=== PATIENT | female | born 1975 | race Caucasian/White ===

== ENCOUNTER 2016-11-04 19:30 | Inpatient (IN) | payer OTHER ==
[~2016-11-04] VITALS: Ht 170.2 cm; Wt 113.9 kg
--- NOTE | ~2016-11-04 | EKG ---
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
--- NOTE | ~2016-11-04 | 2DMMODE ---
[address] [place] [address] 2 D/M-MODE ECHOCARDIOGRAM Name: PEYTONTAN S Room #: 245-P ADM IN .R.#: [id number] Admission: 11/05/16 Attend Phys: Jesus Alberto Barkley Discharge: Date of : 77 Date of Service: 11/08/16 0823 Report #: [id number] THIS REPORT FOR: //name// APPROVED REPORT Study performed: 11/07/2016 11:29:51 EXAM: Comprehensive 2D, Doppler, and color-flow Echocardiogram Patient Location: Bedside Room #: 245 Status: on-call Other Information Study Quality: Technically Limited/limited views and measurements available Technically limited study due to post op bandages, limited windows, no patient mobility. Indications S/P CABG 11/06/16: Hypotension, arrhythmia. Rule out pericardial effusion, LV function. 2D Dimensions LVEF(%): 56.06 (>50%) IVSd: 12.38 (7-11mm) LVDd: 38.85 mm PWd: 12.25 (7-11mm) LVDs: 27.67 (25-40mm) Aortic Root: 30.61 mm Huang's LVEF: 56.06 % Tricuspid Valve TR Peak Rusty.: 2.79 m/s TR Peak Gr.: 31.16 mmHg Left Ventricle The left ventricle is normal size. Regional wall motion is not well visualized but grossly normal. Mild concentric left ventricular hypertrophy. Left ventricular systolic function is normal. LVEF is 60-65%. Right Ventricle Right ventricle is grossly normal in size. Right ventricular systolic function is grossly normal. [facility] [address] [address] 2 D/M-MODE ECHOCARDIOGRAM Name: PEYTONTAN Gloria Room #: 245-P [facility] IN [facility].#: [id number] Admission: 11/05/16 Attend Phys: Jesus Alberto Barkley Discharge: Date of : 77 Date of Service: 11/08/16 0823 Report #: [id number] [place] The left atrium size is normal. The right atrium size is normal. Aortic Valve The aortic valve is grossly normal in structure. No aortic regurgitation is present. Mitral Valve The mitral valve is normal in structure. There is no mitral valve regurgitation noted. Tricuspid Valve The tricuspid valve is normal in structure. There is trace tricuspid regurgitation. There is mild pulmonary hypertension with an estimated PAP of 31mmHg plus the right atrial pressure. Great Vessels The aortic root is normal in size. No subcostal view due to post op bandages. Pericardium There is no pericardial effusion. <Conclusion> Limited and abbreviated study Normal global systolic function. Regional wall motion is not well visualized but grossly normal. LVEF 60-65%. The aortic valve is grossly normal in structure. The mitral valve is normal in structure. No mitral valve regurgitation noted. Pulmonary artery pressure of 30mmHg There is no pericardial effusion. <ELECTRONICALLY SIGNED> By: Guilherme Morel MD, FACC 11/08/16822 2 2 Guilherme Morel MD, FAC /INF
--- NOTE | ~2016-11-04 | CATHLAB ---
[facility] [address] [place] [address] INVASIVE PROCEDURE REPORT Name: TAN TODD Room #: 245-P [facility] IN ..#: [id number] Admission: 11/05/16 Attend Phys: Jesus Alberto Barkley Discharge: Date of : 77 Date of Service: 11/05/16 1212 Report #: [id number] THIS REPORT FOR: //name// APPROVED REPORT Patient Details Patient Status: In-Patient Room #: The patient is a 40 year-old female Event Personnel Cipriano Anderson Search Manager, China Lyons RN Monitor, Keenan Yanez Monitor, Katerina Miller RN RN, Maryjane Colindres RN RN, Avril Hernandez Scrsuzan Procedures Performed Art Access - R femoral artery* Left Heart Cath w/or w/o Coronaries [id number] [address] Initial Mod Sed Same Phys/QHP 5y [id number] Indication Non-STEMI , Unstable angina Risk Factors Arterial Hypertension, Family History, Hypercholesterolemia, Diabetes Admission/Lab Medications/Medications given during procedure Glycoprotein IllbIlla Inhibitors, Heparin Unfract. Procedure Narrative The Right Groin^ was infiltrated with 1% Lidocaine subcutaneous anesthesia. A 4FR MULTIPACK JR 4/JL 4/PIG #[id number] sheath was inserted into the RFA^. Coronary angiography was performed using coronary diagnostic catheters. The right coronary system was accessed and visualized with a 4 Fr JR4 catheter. The left coronary system was accessed and visualized with a 4 Fr JL4 catheter. The left ventricle was accessed and visualized with a Angled Pigtail catheter. Left ventricular/Aortic Valve gradient assessed via catheter pullback. Left ventriculogram was performed in 30 degree projection. The patient tolerated the procedure well and there were no complications associated with the procedure. There was no hematoma. Intraoperative Conscious Sedation Sedation start time: 830 Case end Time: 856 [facility] [place] [place] [address] INVASIVE PROCEDURE REPORT Name: TAN TODD Room #: 245-P [facility] IN ..#: [id number] Admission: 11/05/16 Attend Phys: Jesus Alberto Barkley Discharge: Date of : 77 Date of Service: 11/05/16 1212 Report #: [id number] Fentanyl 50.0 mcg Versed 2.0 mg Fluoro Time: 2.70 minutes Dose: DAP 5800.99 cGycm2 779 mGy Contrast Type and Amount: Visipaque 125 ml Coronary Angiography The patient's coronary anatomy is right dominant. [place] Artery Percent Stenosis Left Main: 80 % Prox LAD: % Mid/Distal LAD: % Circumflex: % RCA: % Ramus: % Hemodynamics The aortic pressure is 138/94 mmHg with a mean of 113 mmHg. The left ventricular pressure is 144/11 mmHg with a mean of mmHg. The left ventricular end diastolic pressure is 21 mmHg. Conclusion Severe distal LM occlusion. Recommend CV consultation. Recommendations CABG <ELECTRONICALLY SIGNED> By: Cipriano Anderson MD 11/05/161211 11 11 Cipriano Anderson MD /INF
--- NOTE | ~2016-11-04 | EKG ---
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 : 1975 Requested By: Fely Villafuerte Order Number: [id number] MD: Guilherme Morel Measurements Intervals [place] Rate: 87 P: 33 MA: 146 QRS: 38 QRSD: 130 T: 7 QT: 421 QTc: 507 Interpretive Statements Sinus rhythm Right bundle branch block Compared to ECG 04/17/2012 14:46:41 No significant change was found Electronically Signed On 11-06-2016 8:37:59 CDT by Guilherme Morel [email or web address] <ELECTRONICALLY SIGNED> By: Guilherme Morel MD, [facility] 11/06/16 0837 0450 9 Guilherme Morel MD, FACC /EPI
--- NOTE | ~2016-11-04 | EKG ---
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 : 1975 Requested By: Bryce Boswell Order Number: [id number] MD: Guilherme Morel Measurements Intervals [place] Rate: 54 P: 13 ND: 130 QRS: 33 QRSD: 134 T: 10 QT: 476 QTc: 452 Interpretive Statements Sinus bradycardia Right bundle branch block Compared to ECG 04/17/2012 14:46:41 Right bundle-branch block now present Electronically Signed On 11-06-2016 8:04:10 CDT by Guilherme Morel [email or web address] <ELECTRONICALLY SIGNED> By: Guilherme Morel MD, [facility] 11/06/16 0804 38 38 Guilherme Morel MD, [facility] /EPI
[2016-11-04 19:30] VITALS: BP 155/100
[~2016-11-04 19:30] MED LIST: CELEXA40 MG; CIPROFLOXACIN500 M1 PO; IBUPROFEN 600600 M1 PO; NORCO 5-325 TA1 EACH PO; PROPRANOLOL 1010 M1; WELLBUTRIN 75 M75 M1
[2016-11-04] MEDS ORDERED: LISINOPRIL10 MG (19:53)
[2016-11-04] MEDS ORDERED: LEVEMIR SUBQ (19:53)
[2016-11-04 20:12] LABS: BASOPHILS 0.5 % (0.0-2.0); EOSINOPHILS 0.1 % (0.0-3.0); HEMATOCRIT 40.9 % (37.0-47.0); HEMOGLOBIN 13.9 gm/dL (12.0-15.0); LYMPHOCYTES 14.8 % (24.0-44.0); MCH 28.4 pg (26.0-34.0); MCV 83.5 fL (80.0-100.0); MONOCYTES 3.3 % (1.0-8.0); PLATELET COUNT 295 thou/uL (150-400); POLYS 81.3 % (36.0-66.0); RDW 12.8 % (10.5-14.5)
[2016-11-04 20:13] LABS: MANUAL DIFF NO
[2016-11-04 20:19] LABS: ANION GAP 14 mmol/L (7-16); BUN 17 mg/dL (7-18); CALCIUM 9.9 mg/dL (8.5-10.1); CHLORIDE 99 mmol/L (98-107); CO2 21 mmol/L (21-32); GLUCOSE 342 mg/dL (74-106); POTASSIUM 4.2 mmol/L (3.5-5.1); SODIUM 134 mmol/L (136-145)
[2016-11-04 20:31] LABS: NT-PRO BRAIN NAT PEPTIDE 17 pg/mL (<300); TROPONIN-I < 0.04 ng/mL (<0.04-0.07)
[2016-11-05] VITALS (8 sets, daily range): BP systolic 122–160; BP diastolic 87–108
[2016-11-05 00:28] LABS: APTT 22.7 Seconds (24.5-32.8); PROTIME 10.2 Seconds (9.3-11.4)
[2016-11-05 04:11] LABS: HEMOGLOBIN 13.1 gm/dL (12.0-15.0); MCH 28.5 pg (26.0-34.0); MCHC 34.6 g/dL (28.0-37.0); MCV 82.2 fL (80.0-100.0); RBC 4.62 mil/uL (4.20-5.00); RDW 13.1 % (10.5-14.5)
[2016-11-05 04:23] LABS: CHOLESTEROL 226 mg/dL (<200); HDL CHOLESTEROL 41 mg/dL (>40); LDL CHOLESTEROL 169 mg/dL (<100); SERUM ASSESSMENT Clear; TC:HDL 5.5 Ratio (Not establshd); TRIGLYCERIDE 83 mg/dL (<150); VLDL 17 mg/dL (<40)
[2016-11-05 04:29] LABS: CALCIUM 8.9 mg/dL (8.5-10.1); CREATININE 0.8 mg/dL (0.6-1.0)
[2016-11-05 04:33] LABS: TROPONIN-I 9.5 ng/mL (<0.04-0.07)
[2016-11-05 16:58] LABS: URINE BILIRUBIN NEGATIVE (Negative); URINE BLOOD NEGATIVE (Negative); URINE COLOR YELLOW; URINE GLUCOSE-RANDOM* 2+ (Negative); URINE KETONES 1+ (Negative); URINE LEUKOCYTES-REFLEX NEGATIVE (Negative); URINE PROTEIN (DIPSTICK) NEGATIVE (Negative); URINE SPECIFIC GRAVITY 1.015 (1.003-1.035); URINE UROBILINOGEN 0.2 E.U./dl (0.2-1.0)
[2016-11-06] VITALS (12 sets, daily range): BP systolic 102–132; BP diastolic 66–88
[2016-11-06 06:37] LABS: HEMATOCRIT 37.1 % (37.0-47.0); HEMOGLOBIN 12.6 gm/dL (12.0-15.0); MCH 28.1 pg (26.0-34.0); MCHC 33.9 g/dL (28.0-37.0); RBC 4.47 mil/uL (4.20-5.00); RDW 12.9 % (10.5-14.5); WBC 12.8 thou/uL (4.0-11.0)
[2016-11-06 06:48] LABS: CALCIUM 8.5 mg/dL (8.5-10.1); CREATININE 0.6 mg/dL (0.6-1.0); POTASSIUM 3.8 mmol/L (3.5-5.1)
[2016-11-06 18:12] LABS: POC BE -3 mmol/L (-2.0 to +3.0); POC CA IONIZED 3.7 mg/dL (4.5-5.3); POC FiO2 80 %; POC GLUCOSE 212 mg/dL (70-99); POC HCO3 21.5 mmol/L (22.0-26.0); POC HEMOGLOBIN 8.8 g/dL (12.0-15.0); POC SODIUM 131 mmol/L (136-145); POC pCO2 31.1 mmHg (35.0-45.0); POC pH 7.448 (7.360-7.450)
[2016-11-06 18:12] LABS: POC BE 0 mmol/L (-2.0 to +3.0); POC CA IONIZED 4.5 mg/dL (4.5-5.3); POC FiO2 100 %; POC GLUCOSE 211 mg/dL (70-99); POC HCO3 24.5 mmol/L (22.0-26.0); POC HEMOGLOBIN 11.6 g/dL (12.0-15.0); POC POTASSIUM 3.6 mmol/L (3.5-5.1); POC SODIUM 135 mmol/L (136-145); POC pCO2 36.4 mmHg (35.0-45.0); POC pH 7.435 (7.360-7.450)
[2016-11-06 18:12] LABS: POC BE -4 mmol/L (-2.0 to +3.0); POC FiO2 75 %; POC GLUCOSE 214 mg/dL (70-99); POC HCO3 21.3 mmol/L (22.0-26.0); POC HEMOGLOBIN 9.5 g/dL (12.0-15.0); POC SODIUM 135 mmol/L (136-145); POC pCO2 36.2 mmHg (35.0-45.0); POC pH 7.377 (7.360-7.450)
[2016-11-06 18:12] LABS: POC BE -1 mmol/L (-2.0 to +3.0); POC CA IONIZED 7.4 mg/dL (4.5-5.3); POC FiO2 100 %; POC GLUCOSE 176 mg/dL (70-99); POC HEMOGLOBIN 8.8 g/dL (12.0-15.0); POC POTASSIUM 3.3 mmol/L (3.5-5.1); POC SODIUM 136 mmol/L (136-145); POC pCO2 40.8 mmHg (35.0-45.0); POC pH 7.378 (7.360-7.450)
[2016-11-06 18:12] LABS: POC BE 3 mmol/L (-2.0 to +3.0); POC CA IONIZED 4.4 mg/dL (4.5-5.3); POC FiO2 100 %; POC GLUCOSE 211 mg/dL (70-99); POC HCO3 26.3 mmol/L (22.0-26.0); POC HEMOGLOBIN 12.2 g/dL (12.0-15.0); POC POTASSIUM 3.5 mmol/L (3.5-5.1); POC SODIUM 134 mmol/L (136-145); POC pCO2 33.3 mmHg (35.0-45.0); POC pH 7.505 (7.360-7.450)
[2016-11-06 18:12] LABS: POC BE -3 mmol/L (-2.0 to +3.0); POC CA IONIZED 6.5 mg/dL (4.5-5.3); POC FiO2 85 %; POC GLUCOSE 193 mg/dL (70-99); POC HCO3 23.7 mmol/L (22.0-26.0); POC HEMOGLOBIN 9.2 g/dL (12.0-15.0); POC POTASSIUM 3.9 mmol/L (3.5-5.1); POC SODIUM 132 mmol/L (136-145); POC pCO2 50.4 mmHg (35.0-45.0)
[2016-11-06 18:58] LABS: HEMATOCRIT 36.9 % (37.0-47.0); HEMOGLOBIN 12.5 gm/dL (12.0-15.0); MCH 28.3 pg (26.0-34.0); MCHC 33.8 g/dL (28.0-37.0); MCV 83.6 fL (80.0-100.0); RBC 4.42 mil/uL (4.20-5.00); WBC 27.5 thou/uL (4.0-11.0)
[2016-11-06 19:08] LABS: CREATININE 0.9 mg/dL (0.6-1.0); POTASSIUM 3.8 mmol/L (3.5-5.1)
[2016-11-06 19:08] LABS: ABG COMMENT A/C MODE; ABG SAMPLE TYPE ARTERIAL; BE(vivo) -4.8 mmol/L (-2 to +3); HCO3 19.7 mmol/L (22.0-26.0); LACTATE 1.72 mmol/L (0.5-2.0); O2(CT) 16.5 mL/dL (15.0-23.0); O2Hb 88.4 % (92.0-98.0); PCO2 34.9 mmHg (35.0-45.0); PO2 57.6 mmHg (80.0-100.0); STICK SITE LINE; TIDAL VOLUME 700 ml; sO2 89.5 % (92.0-98.0); tCO2 20.8 mmol/L (24.0-30.0)
[2016-11-06 19:12] LABS: FIBRINOGEN 311.4 mg/dL (210-360); INR 1.1
[2016-11-06 19:13] LABS: MAGNESIUM 2.4 mg/dL (1.8-2.4); PHOSPHORUS 3.5 mg/dL (2.5-4.9); TOTAL BILIRUBIN 0.5 mg/dL (<0.1-1.0); TOTAL PROTEIN 5.7 g/dL (6.4-8.2)
[2016-11-06 19:15] LABS: APTT 23.4 Seconds (24.5-32.8)
[2016-11-06 19:16] LABS: CALCIUM 10.8 mg/dL (8.5-10.1)
[2016-11-06 21:29] LABS: ABG SAMPLE TYPE ARTERIAL; BE(vivo) -4.1 mmol/L (-2 to +3); HCO3 20.3 mmol/L (22.0-26.0); LACTATE 1.42 mmol/L (0.5-2.0); O2(CT) 18.3 mL/dL (15.0-23.0); O2Hb 97.5 % (92.0-98.0); PO2 146.2 mmHg (80.0-100.0); pH 7.381 (7.360-7.450); sO2 98.9 % (92.0-98.0); tCO2 21.4 mmol/L (24.0-30.0)
[2016-11-06 21:30] LABS: ABG COMMENT CMV; STICK SITE ALINE; TIDAL VOLUME 700 ml
[2016-11-06 23:24] LABS: HEMATOCRIT 36.7 % (37.0-47.0); HEMOGLOBIN 12.2 gm/dL (12.0-15.0)
[2016-11-07] VITALS (40 sets, daily range): BP systolic 72–116; BP diastolic 42–88
[2016-11-07 01:20] LABS: ABG COMMENT CPAP/PS TRIAL; ABG SAMPLE TYPE ARTERIAL; BE(vivo) -3.9 mmol/L (-2 to +3); HCO3 19.5 mmol/L (22.0-26.0); LACTATE 1.26 mmol/L (0.5-2.0); O2(CT) 18.2 mL/dL (15.0-23.0); O2Hb 96.6 % (92.0-98.0); PCO2 30.9 mmHg (35.0-45.0); PO2 101.4 mmHg (80.0-100.0); Pressure Support 8 cm H20; STICK SITE LINE; TIDAL VOLUME 550 ml; pH 7.418 (7.360-7.450); sO2 97.8 % (92.0-98.0); tCO2 20.5 mmol/L (24.0-30.0)
[2016-11-07 05:12] LABS: GLYCOHEMOGLOBIN (HGB A1C) 9.6 % (4.8-5.6)
[2016-11-07 05:38] LABS: HEMATOCRIT 38.1 % (37.0-47.0); HEMOGLOBIN 12.7 gm/dL (12.0-15.0); MCH 28.1 pg (26.0-34.0); MCHC 33.3 g/dL (28.0-37.0); MCV 84.3 fL (80.0-100.0); RBC 4.52 mil/uL (4.20-5.00); RDW 13.3 % (10.5-14.5); WBC 17.3 thou/uL (4.0-11.0)
[2016-11-07 05:40] LABS: CALCIUM 9.5 mg/dL (8.5-10.1); CREATININE 0.6 mg/dL (0.6-1.0); POTASSIUM 4.1 mmol/L (3.5-5.1)
[2016-11-07 11:07] LABS: CK-MB MASS 18.8 ng/mL (<0.5-3.6)
[2016-11-07 11:09] LABS: TROPONIN-I 12.41 ng/mL (<0.04-0.07)
[2016-11-08] VITALS (24 sets, daily range): BP systolic 103–129; BP diastolic 56–87
[2016-11-08 05:11] LABS: ABG SAMPLE TYPE ARTERIAL; BE(vivo) -3.3 mmol/L (-2 to +3); HCO3 20.5 mmol/L (22.0-26.0); O2(CT) 16.1 mL/dL (15.0-23.0); O2Hb 92.4 % (92.0-98.0); PCO2 32.8 mmHg (35.0-45.0); PO2 65.4 mmHg (80.0-100.0); STICK SITE LINE; pH 7.413 (7.360-7.450); sO2 93.4 % (92.0-98.0); tCO2 21.5 mmol/L (24.0-30.0)
[2016-11-08 05:47] LABS: ABSOLUTE NEUTROPHILS 11.7 thou/uL (1.4-8.2); BASOPHILS 0.1 % (0.0-2.0); EOSINOPHILS 1.5 % (0.0-3.0); HEMATOCRIT 33.8 % (37.0-47.0); HEMOGLOBIN 11.4 gm/dL (12.0-15.0); LYMPHOCYTES 13.2 % (24.0-44.0); MCH 28.6 pg (26.0-34.0); MCHC 33.8 g/dL (28.0-37.0); MCV 84.6 fL (80.0-100.0); MONOCYTES 6.6 % (1.0-8.0); PLATELET COUNT 171 thou/uL (150-400); POLYS 78.6 % (36.0-66.0); RBC 3.99 mil/uL (4.20-5.00); RDW 13.1 % (10.5-14.5); WBC 14.8 thou/uL (4.0-11.0)
[2016-11-08 05:48] LABS: MANUAL DIFF NO
[2016-11-08 06:01] LABS: ALBUMIN 2.6 g/dL (3.4-5.0); CALCIUM 8.6 mg/dL (8.5-10.1); CREATININE 0.7 mg/dL (0.6-1.0); POTASSIUM 3.7 mmol/L (3.5-5.1); TOTAL BILIRUBIN 0.7 mg/dL (<0.1-1.0); TOTAL PROTEIN 5.8 g/dL (6.4-8.2)
[2016-11-09] VITALS (22 sets, daily range): BP systolic 95–138; BP diastolic 63–95
[2016-11-10] VITALS (16 sets, daily range): BP systolic 90–130; BP diastolic 47–81
[2016-11-11 04:16] VITALS: BP 110/70
[2016-11-11 07:10] VITALS: BP 109/70
[2016-11-11 11:15] VITALS: BP 115/73
[2016-11-11 16:10] VITALS: BP 115/70
[2016-11-11 19:21] VITALS: BP 114/76
[2016-11-12] MEDS ORDERED: ZYRTEC10 M4 PO (00:15)
[2016-11-12 04:38] VITALS: BP 103/67
[2016-11-12 05:25] LABS: HEMATOCRIT 28.7 % (37.0-47.0); HEMOGLOBIN 9.8 gm/dL (12.0-15.0)
[2016-11-12 05:36] LABS: CALCIUM 8.9 mg/dL (8.5-10.1); CREATININE 0.8 mg/dL (0.6-1.0); MAGNESIUM 1.6 mg/dL (1.8-2.4); POTASSIUM 3.4 mmol/L (3.5-5.1)
[2016-11-12 07:10] VITALS: BP 107/72
[2016-11-12 11:45] VITALS: BP 104/69
[2016-11-12 15:55] VITALS: BP 104/67
[2016-11-12 19:29] VITALS: BP 106/72
[2016-11-12 23:49] VITALS: BP 131/81
[2016-11-13 00:28] LABS: CALCIUM 8.8 mg/dL (8.5-10.1); CREATININE 0.9 mg/dL (0.6-1.0); MAGNESIUM 1.4 mg/dL (1.8-2.4)
[2016-11-13 05:43] VITALS: BP 101/58
[2016-11-13 07:15] VITALS: BP 109/76
[2016-11-13] MEDS ORDERED: HYDROCODONE-AP1 EAC6 PO (09:29)
[2016-11-13] MEDS ORDERED: GLUCOPHAGE1000 MG PO (09:29)
[2016-11-13] MEDS ORDERED: ASPIRIN325 PO (09:29)
[2016-11-13] MEDS ORDERED: LOPRESSOR25 PO (09:29)
[2016-11-13 10:46] VITALS: BP 109/76
[2016-11-13 12:00] VITALS: BP 99/58
== END 2016-11-13 14:46 | disposition home or self-care (01) | DRG 233 ==
LOC: ER 19:30 → ICU 11-05 00:12 → EROBS 11-05 00:12 → 2N 11-05 00:54 → ICU 11-05 09:21 → 2N 11-10 13:52
PROVIDERS: Emergency Medicine; Hospitalist; Internal Medicine Cardiovascular Disease; Nurse Practitioner; Nurse Practitioner Family; Thoracic Surgery (Cardiothoracic Vascular Surgery)
PROC: B2151ZZ Fluoroscopy of Left Heart using Low Osmolar Contrast (ICD-10-PCS; 2016-11-05)
PROC: B2111ZZ Fluoroscopy of Multiple Coronary Arteries using Low Osmolar Contrast (ICD-10-PCS; 2016-11-05)
PROC: 4A023N7 Measurement of Cardiac Sampling and Pressure, Left Heart, Percutaneous Approach (ICD-10-PCS; 2016-11-05)
PROC: 02100Z9 Bypass Coronary Artery, One Artery from Left Internal Mammary, Open Approach (ICD-10-PCS; principal; 2016-11-06)
PROC: 021009W Bypass Coronary Artery, One Artery from Aorta with Autologous Venous Tissue, Open Approach (ICD-10-PCS; principal; 2016-11-06)
PROC: 02HV33Z Insertion of Infusion Device into Superior Vena Cava, Percutaneous Approach (ICD-10-PCS; 2016-11-06)
PROC: B548ZZA Ultrasonography of Superior Vena Cava, Guidance (ICD-10-PCS; 2016-11-06)
DX: I21.4 Non-ST elevation (NSTEMI) myocardial infarction (principal); N17.0 Acute kidney failure with tubular necrosis; I44.2 Atrioventricular block, complete; J98.11 Atelectasis; I25.10 Atherosclerotic heart disease of native coronary artery without angina pectoris; I10 Essential (primary) hypertension; F32.9 Major depressive disorder, single episode, unspecified; F41.9 Anxiety disorder, unspecified; D72.829 Elevated white blood cell count, unspecified; E11.65 Type 2 diabetes mellitus with hyperglycemia; I45.10 Unspecified right bundle-branch block; E78.00 Pure hypercholesterolemia, unspecified; I95.9 Hypotension, unspecified; E66.9 Obesity, unspecified; E83.42 Hypomagnesemia; Z88.1 Allergy status to other antibiotic agents; Z88.0 Allergy status to penicillin; Z88.6 Allergy status to analgesic agent; Z88.8 Allergy status to other drugs, medicaments and biological substances; Z68.39 Body mass index [BMI] 39.0-39.9, adult; Z79.4 Long term (current) use of insulin; Z91.040 Latex allergy status; Z87.891 Personal history of nicotine dependence; Z82.49 Family history of ischemic heart disease and other diseases of the circulatory system; Z87.442 Personal history of urinary calculi
CPT/HCPCS: 10078; 10081; 47000; 47001; 47002; 47297; 48888; 50249; 50409; 50497; 50662; 50668; 50953; 51301; 52131; 53327; 53358; 54118; 56524; 56525; 56526; 56527; 56528; 56531; 56534; 56639; 56660; 56898; 57093; 62110; 62950; 83006

== ENCOUNTER → 2016-12-04 | Outpatient (CLI) | payer OTHER ==
[~2016-12-04] MED LIST changes: +ASPIRIN325 PO; +GLUCOPHAGE1000 MG PO; +HYDROCODONE-AP1 EAC6 PO; +LEVEMIR SUBQ; +LISINOPRIL10 MG; +LOPRESSOR25 PO; +ZYRTEC10 M4 PO
== END ==
LOC: RAD 14:26
DX: Z98.890 Other specified postprocedural states (principal)

== ENCOUNTER 2017-06-16 03:14 | Emergency (ER) | payer OTHER ==
[~2017-06-16] VITALS: Ht 170.2 cm; Wt 108.9 kg
--- NOTE | ~2017-06-16 | EKG ---
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 : 1975 Requested By: Danis Lynch Order Number: [id number] MD: Guilherme Morel Measurements Intervals [place] Rate: 120 P: 49 VT: 133 QRS: 53 QRSD: 126 T: 20 QT: 330 QTc: 467 Interpretive Statements Sinus tachycardia Right bundle branch block Nonspecific T abnormalities, lateral leads Compared to ECG 11/07/2016 11:20:07 Complete heart block is no longer present Electronically Signed On 06-18-2017 7:23:24 JAVA WEB APPLICATION DEVELOPER by Guilherme Morel [email or web address] <ELECTRONICALLY SIGNED> By: Guilherme Morel MD, [facility] 06/18/17 0723 1 1 Guilherme Morel MD, FAC /EPI
[2017-06-16] MEDS ORDERED: TRADJENTA5 MG (03:29)
[2017-06-16 03:50] LABS: HEMATOCRIT 40.9 % (37.0-47.0); HEMOGLOBIN 13.9 gm/dL (12.0-15.0); MCHC 34.1 g/dL (28.0-37.0); MCV 82.1 fL (80.0-100.0); RBC 4.98 mil/uL (4.20-5.00); RDW 13.5 % (10.5-14.5); WBC 9.5 thou/uL (4.0-11.0)
[2017-06-16 04:00] LABS: ANION GAP 14 mmol/L (7-16); BUN 14 mg/dL (7-18); CALCIUM 9.5 mg/dL (8.5-10.1); CHLORIDE 101 mmol/L (98-107); CO2 21 mmol/L (21-32); CREATININE 1.1 mg/dL (0.6-1.0); GLUCOSE 279 mg/dL (74-106); POTASSIUM 4.4 mmol/L (3.5-5.1); SODIUM 136 mmol/L (136-145)
[2017-06-16 04:08] LABS: TROPONIN-I < 0.04 ng/mL (<0.06)
[2017-06-16] MEDS ORDERED: OSELB75 PO (04:21)
[2017-06-16 04:55] VITALS: BP 168/100
== END 2017-06-16 04:56 | disposition home or self-care (01) ==
LOC: ER 03:14
PROVIDERS: Emergency Medicine
DX: J11.1 Influenza due to unidentified influenza virus with other respiratory manifestations (principal); I10 Essential (primary) hypertension; F32.9 Major depressive disorder, single episode, unspecified; F41.9 Anxiety disorder, unspecified; Z87.891 Personal history of nicotine dependence; Z88.0 Allergy status to penicillin; Z88.1 Allergy status to other antibiotic agents; Z88.5 Allergy status to narcotic agent

== ENCOUNTER → 2019-06-16 | Outpatient (CLI) | payer OTHER ==
[~2019-06-16] MED LIST changes: +JANUVIA25 MG PO; +OSELB75 PO; +RAMIPRIL5 MG PO; +RANITIDINE 150150 M1 PO; +TRADJENTA5 MG
== END ==
LOC: SJCVC 10:05
DX: I45.10 Unspecified right bundle-branch block (principal); R94.31 Abnormal electrocardiogram [ECG] [EKG]; I10 Essential (primary) hypertension; E78.00 Pure hypercholesterolemia, unspecified; I25.118 Atherosclerotic heart disease of native coronary artery with other forms of angina pectoris

== ENCOUNTER → 2019-06-27 | Outpatient (CLI) | payer OTHER | LOC: SJCVCIMAG 12:28 | DX: Z53.29 Procedure and treatment not carried out because of patient's decision for other reasons (principal) ==

== ENCOUNTER 2019-06-28 09:40 | Emergency (ER) | payer OTHER ==
[~2019-06-28] VITALS: Ht 167.6 cm; Wt 103.4 kg
[~2019-06-28 09:40] MED LIST changes: -JANUVIA25 MG PO; -RAMIPRIL5 MG PO; -RANITIDINE 150150 M1 PO
[2019-06-28] MEDS ORDERED: RAMIPRIL5 MG PO (09:43)
[2019-06-28] MEDS ORDERED: RANITIDINE 150150 M1 PO (09:44)
[2019-06-28] MEDS ORDERED: JANUVIA25 MG PO (09:44)
[2019-06-28 10:16] LABS: ABSOLUTE NEUTROPHILS 6.5 thou/uL (1.4-8.2); BASOPHILS 0.1 % (0.0-2.0); EOSINOPHILS 1.1 % (0.0-3.0); HEMATOCRIT 37.8 % (37.0-47.0); HEMOGLOBIN 12.4 gm/dL (12.0-15.0); LYMPHOCYTES 20.6 % (24.0-44.0); MCH 27.8 pg (26.0-34.0); MCHC 32.7 g/dL (28.0-37.0); MONOCYTES 4.2 % (1.0-8.0); PLATELET COUNT 297 thou/uL (150-400); RBC 4.44 mil/uL (4.20-5.00); RDW 13.1 % (10.5-14.5); WBC 8.7 thou/uL (4.0-11.0)
[2019-06-28 10:19] LABS: ANION GAP 12 mmol/L (7-16); BUN 19 mg/dL (7-18); CALCIUM 8.9 mg/dL (8.5-10.1); CHLORIDE 103 mmol/L (98-107); CO2 22 mmol/L (21-32); CREATININE 0.8 mg/dL (0.6-1.0); GLUCOSE 215 mg/dL (74-106); POTASSIUM 4.1 mmol/L (3.5-5.1); SODIUM 137 mmol/L (136-145)
[2019-06-28 10:28] LABS: TROPONIN-I <0.06 ng/mL (<0.06)
[2019-06-28 12:28] VITALS: BP 178/118
--- NOTE | 2019-06-30 08:31 | EKG ---
[facility] [place] [address] ELECTROCARDIOGRAM REPORT Name: TAN TODD Room #: DEP [facility]#: [id number] Admission: 06/28/19 Attend Phys: Discharge: 06/28/19 Date of : 77 Report #: [id number] THIS REPORT FOR: cc: ANGELINA - Lissa family physician/PCP ANGELINA - Lissa family physician/PCP Guilherme Morel MD [facility] THIS REPORT FOR: //name// [facility] ED Test Date: 2019-06-28 Test Time: 09:46:02 Pat Name: TAN TODD Department: Room: Gender: Rn Primary Care: liyah : 1975 Requested By: Bryce Boswell Order Number: [id number] MD: Guilherme Morel Measurements Intervals [place] Rate: 80 P: 45 [place]: 145 QRS: 44 QRSD: 131 T: 91 QT: 439 QTc: 507 Interpretive Statements Sinus rhythm Right bundle branch block Nonspecific T abnormalities, lateral leads Compared to ECG 06/16/2017 03:22:25 Sinus tachycardia no longer present Electronically Signed On 06-30-2019 8:30:30 EXTERMINATOR HELPER by Guilherme Morel [email or web address] <ELECTRONICALLY SIGNED> By: Guilherme Morel MD, [facility] 06/30/19 0830 Guilherme Morel MD, [facility] /EPI
== END 2019-06-28 12:34 | disposition home or self-care (01) ==
LOC: ER 09:40
PROVIDERS: Emergency Medicine
DX: R07.89 Other chest pain (principal); I10 Essential (primary) hypertension; Z88.1 Allergy status to other antibiotic agents; Z91.040 Latex allergy status; Z88.0 Allergy status to penicillin; Z88.8 Allergy status to other drugs, medicaments and biological substances; Z87.442 Personal history of urinary calculi; Z87.891 Personal history of nicotine dependence